=== PATIENT | male | born 1960 | race Caucasian/White ===

== ENCOUNTER 2019-05-13 14:43 | Outpatient (CLI) | payer OTHER, SELFPAY | END 2019-05-13 14:44 | disposition home or self-care (01) | LOC: SPT 14:44 | PROVIDERS: PCP Specialist; Visit Provider Podiatrist Foot & Ankle Surgery | DX: S52.045D Nondisplaced fracture of coronoid process of left ulna, subsequent encounter for closed fracture with routine healing (principal); S42.455D Nondisplaced fracture of lateral condyle of left humerus, subsequent encounter for fracture with routine healing; X58.XXXD Exposure to other specified factors, subsequent encounter | CPT/HCPCS: L3761; L4361 ==

== ENCOUNTER → 2019-06-07 09:07 | Outpatient (BNVA) | payer OTHER, SELFPAY | PROVIDERS: PCP Specialist; Visit Provider Specialist | DX: S92.001A Unspecified fracture of right calcaneus, initial encounter for closed fracture (principal); M77.31 Calcaneal spur, right foot; M25.422 Effusion, left elbow; S52.042A Displaced fracture of coronoid process of left ulna, initial encounter for closed fracture; X58.XXXA Exposure to other specified factors, initial encounter | CPT/HCPCS: 73080; 73630 ==

== ENCOUNTER 2019-06-07 11:29 | Outpatient (CLI) | payer OTHER, SELFPAY | END 2019-06-07 11:30 | disposition home or self-care (01) | LOC: SPT 11:30 | PROVIDERS: PCP Specialist; Visit Provider Podiatrist Foot & Ankle Surgery | DX: Z46.89 Encounter for fitting and adjustment of other specified devices (principal); S82.891D Other fracture of right lower leg, subsequent encounter for closed fracture with routine healing; X58.XXXD Exposure to other specified factors, subsequent encounter | CPT/HCPCS: L1902 ==

== ENCOUNTER → 2019-06-28 08:16 | Outpatient (BNVA) | payer OTHER, SELFPAY | PROVIDERS: PCP Specialist; Visit Provider Podiatrist Foot & Ankle Surgery | DX: S42.132A Displaced fracture of coracoid process, left shoulder, initial encounter for closed fracture (principal); X58.XXXA Exposure to other specified factors, initial encounter; M25.422 Effusion, left elbow | CPT/HCPCS: 73080 ==

== ENCOUNTER → 2019-12-16 10:55 | Outpatient (BNVA) | payer OTHER, SELFPAY | PROVIDERS: PCP Specialist; Visit Provider Internal Medicine Rheumatology | DX: M25.50 Pain in unspecified joint (principal); Z79.899 Other long term (current) drug therapy; M77.9 Enthesopathy, unspecified; R21 Rash and other nonspecific skin eruption | CPT/HCPCS: 36415; 99204 ==

== ENCOUNTER 2019-12-16 12:51 | Outpatient (CLI) | payer OTHER, SELFPAY ==
--- NOTE | 2019-12-16 13:47 | XR_ITS ---
WS: [id number] HAND RIGHT TECHNIQUE: 3 views of the right hand CLINICAL INFORMATION: inflammatory arthritis COMPARISON: None. FINDINGS: Normal metacarpals. Normal MCP joint. Metacarpal heads are normal in appearance. Normal PIP and DIP j oints. No evidence of acute fracture or dislocation. Mild hypertrophic spurring along the metacarpal heads and base of the metacarpals more prominent at the second and third metacarpals. Radiocarpal joint: Mild narrowing Carpal bones: Normal. Small radiopaque foreign body at the level of the TFCC. XR/XR hand RT min 3V* [id number] IMPRESSION: 1. Mild narrowing of the radiocarpal joint with hypertrophic spurring along th e radial styloid. 2. Small radiopaque foreign body at the level of the TFCC.
--- NOTE | 2019-12-16 13:47 | XR_ITS ---
WS: [id number] PROCEDURE: XR chest 2V* [id number] CLINICAL INFORMATION: inflammatory arthritis COMPARISON: None. FINDINGS: Heart: Normal cardiac silhouette. Lungs: Lungs are clear. No consolidation or pleural fluid. Bones: Hypertrophic changes thoracic spine. XR/XR chest 2V* [id number] IMPRESSION: Unremarkable chest
--- NOTE | 2019-12-16 13:47 | XR_ITS ---
WS: [id number] PELVIS TECHNIQUE: 1 view(s) of the pelvis CLINICAL INFORMATION: inflammatory arthritis COMPARISON: None. FINDINGS: Mild degenerative arthritis patellofemoral joint space narrowing.. Normal acetabulum. Lower lumbar sp ine is normal. Inferior and superior pubic rami are normal. Normal iliopectineal line. Sacrum is norm al in appearance. Mild degenerative arthritis sacroiliac joint. No significant erosive changes. XR/XR pelvis 1-2V* [id number] IMPRESSION: Mild degenerative arthritis both hips. Pelvis otherwise unremarkable.
--- NOTE | 2019-12-16 13:47 | XR_ITS ---
WS: [id number] HAND LEFT TECHNIQUE: 3 views of the left hand CLINICAL INFORMATION: inflammatory arthritis COMPARISON: None. FINDINGS: Normal metacarpals. Normal MCP joint. Metacarpal heads are normal in appearance. Normal PIP and DIP j oints. No evidence of acute fracture or dislocation. Radiocarpal joint: Normal. Carpal bones: Normal. XR/XR hand LT min 3V* [id number] IMPRESSION: Normal left hand.
== END 2019-12-16 12:52 | disposition home or self-care (01) ==
LOC: RADWPI 12:55
PROVIDERS: Visit Provider Internal Medicine Rheumatology
DX: M19.90 Unspecified osteoarthritis, unspecified site (principal); M16.0 Bilateral primary osteoarthritis of hip; S60.551A Superficial foreign body of right hand, initial encounter; X58.XXXA Exposure to other specified factors, initial encounter
CPT/HCPCS: 71046; 72170; 73130; 80076; 82306; 82565; 85025; 85651; 86038; 86140; 86431; 86480; 86704; 86803; 86812; 87340

== ENCOUNTER → 2020-02-09 13:34 | Outpatient (BNVA) | payer OTHER, SELFPAY | PROVIDERS: Visit Provider Internal Medicine Rheumatology | DX: L40.50 Arthropathic psoriasis, unspecified (principal); M77.8 Other enthesopathies, not elsewhere classified; M06.4 Inflammatory polyarthropathy; M65.80 Other synovitis and tenosynovitis, unspecified site; Z79.899 Other long term (current) drug therapy | CPT/HCPCS: 99214 ==

== ENCOUNTER → 2020-03-15 15:28 | Outpatient (BNVA) | payer OTHER, SELFPAY | PROVIDERS: Visit Provider Internal Medicine Rheumatology | DX: Z79.899 Other long term (current) drug therapy (principal) | CPT/HCPCS: 80076; 82565; 85025; 85651; 86140 ==

== ENCOUNTER → 2020-06-20 15:51 | Outpatient (BNVA) | payer OTHER, SELFPAY | PROVIDERS: Visit Provider Internal Medicine Rheumatology | DX: L40.50 Arthropathic psoriasis, unspecified (principal); M19.90 Unspecified osteoarthritis, unspecified site; Z79.899 Other long term (current) drug therapy | CPT/HCPCS: 80076; 82565; 85025; 86140 ==

== ENCOUNTER → 2020-07-04 12:58 | Outpatient (BNVA) | payer OTHER, SELFPAY | PROVIDERS: Visit Provider Internal Medicine Rheumatology | DX: L40.50 Arthropathic psoriasis, unspecified (principal); Z79.899 Other long term (current) drug therapy; M15.9 Polyosteoarthritis, unspecified; R21 Rash and other nonspecific skin eruption; M65.80 Other synovitis and tenosynovitis, unspecified site | CPT/HCPCS: 99214 ==

== ENCOUNTER → 2020-07-31 12:48 | Outpatient (BNVA) | payer OTHER, SELFPAY | PROVIDERS: PCP Nurse Practitioner Family; Visit Provider Nurse Practitioner Family | DX: R21 Rash and other nonspecific skin eruption (principal); I10 Essential (primary) hypertension; E55.9 Vitamin D deficiency, unspecified; Z13.6 Encounter for screening for cardiovascular disorders; M19.90 Unspecified osteoarthritis, unspecified site; Z79.899 Other long term (current) drug therapy | CPT/HCPCS: 80076; 82565; 85025; 86140 ==

== ENCOUNTER → 2020-08-03 10:40 | Outpatient (BNVA) | payer OTHER, SELFPAY | PROVIDERS: PCP Nurse Practitioner Family; Visit Provider Nurse Practitioner Family | DX: I10 Essential (primary) hypertension (principal) | CPT/HCPCS: 81003 ==

== ENCOUNTER → 2020-11-13 16:25 | Outpatient (BNVA) | payer OTHER, SELFPAY | PROVIDERS: PCP Nurse Practitioner Family; Visit Provider Internal Medicine Rheumatology | DX: M19.90 Unspecified osteoarthritis, unspecified site (principal); Z71.89 Other specified counseling; Z79.899 Other long term (current) drug therapy | CPT/HCPCS: 80076; 82565; 85025; 86140 ==

== ENCOUNTER → 2021-03-14 10:09 | Outpatient (BNVA) | payer OTHER, SELFPAY | PROVIDERS: PCP Nurse Practitioner Family; Visit Provider Internal Medicine Rheumatology | DX: L40.50 Arthropathic psoriasis, unspecified (principal); Z79.899 Other long term (current) drug therapy; M19.90 Unspecified osteoarthritis, unspecified site | CPT/HCPCS: 80076; 82565; 85025; 86140 ==

== ENCOUNTER → 2021-09-03 15:18 | Outpatient (BNVA) | payer OTHER, SELFPAY | PROVIDERS: PCP Nurse Practitioner Family; Visit Provider Internal Medicine Rheumatology | DX: L40.50 Arthropathic psoriasis, unspecified (principal); M19.90 Unspecified osteoarthritis, unspecified site; Z79.899 Other long term (current) drug therapy | CPT/HCPCS: 80076; 82565; 85025; 85651; 86140 ==

== ENCOUNTER → 2022-01-22 09:47 | Outpatient (BNVA) | payer OTHER, SELFPAY | PROVIDERS: PCP Nurse Practitioner Family; Visit Provider Internal Medicine Rheumatology | DX: L40.50 Arthropathic psoriasis, unspecified (principal); M19.90 Unspecified osteoarthritis, unspecified site; Z71.89 Other specified counseling; Z79.899 Other long term (current) drug therapy | CPT/HCPCS: 36415; 80076; 82565; 85025; 86140 ==

== ENCOUNTER → 2022-06-10 10:20 | Outpatient (BNVA) | payer OTHER, SELFPAY | PROVIDERS: PCP Nurse Practitioner Family; Visit Provider Internal Medicine Rheumatology | DX: L40.50 Arthropathic psoriasis, unspecified (principal); Z79.899 Other long term (current) drug therapy; Z71.89 Other specified counseling; M65.80 Other synovitis and tenosynovitis, unspecified site | CPT/HCPCS: 36415; 80076; 82565; 85025; 86140 ==

== ENCOUNTER → 2022-07-11 15:22 | Outpatient (BNVA) | payer OTHER, SELFPAY | PROVIDERS: PCP Nurse Practitioner Family; Visit Provider Internal Medicine Rheumatology | DX: L40.50 Arthropathic psoriasis, unspecified (principal); M19.90 Unspecified osteoarthritis, unspecified site; Z79.899 Other long term (current) drug therapy | CPT/HCPCS: 80076; 82565; 85025 ==

== ENCOUNTER → 2022-09-09 11:02 | Outpatient (BNVA) | payer OTHER, SELFPAY | PROVIDERS: PCP Nurse Practitioner Family; Visit Provider Internal Medicine Rheumatology | DX: L40.50 Arthropathic psoriasis, unspecified (principal); Z71.89 Other specified counseling; M65.80 Other synovitis and tenosynovitis, unspecified site; Z79.899 Other long term (current) drug therapy | CPT/HCPCS: 36415; 80076; 82565; 85025; 86140 ==

== ENCOUNTER → 2022-12-17 09:33 | Outpatient (BNVA) | payer OTHER, SELFPAY | PROVIDERS: Visit Provider Internal Medicine Rheumatology | DX: L40.50 Arthropathic psoriasis, unspecified (principal); Z79.899 Other long term (current) drug therapy; M19.90 Unspecified osteoarthritis, unspecified site | CPT/HCPCS: 80076; 82565; 85025; 86140 ==

== ENCOUNTER → 2023-03-10 09:52 | Outpatient (BNVA) | payer OTHER, SELFPAY | PROVIDERS: Visit Provider Internal Medicine Rheumatology | DX: Z79.899 Other long term (current) drug therapy (principal); L40.50 Arthropathic psoriasis, unspecified; Z71.89 Other specified counseling; M65.80 Other synovitis and tenosynovitis, unspecified site | CPT/HCPCS: 36415; 80076; 82565; 85025; 86140 ==

== ENCOUNTER → 2023-09-15 08:43 | Outpatient (BNVA) | payer OTHER, SELFPAY | PROVIDERS: Visit Provider Internal Medicine Rheumatology | DX: M19.90 Unspecified osteoarthritis, unspecified site (principal); L40.50 Arthropathic psoriasis, unspecified; Z79.899 Other long term (current) drug therapy | CPT/HCPCS: 80076; 82565; 85025; 86140 ==